=== PATIENT | female | born 1980 | race Caucasian/White ===

== ENCOUNTER → 2018-10-29 | Outpatient (CLI) | payer OTHER | END | disposition home or self-care (01) | LOC: MA 11:42 | PROC: BH02ZZZ Plain Radiography of Bilateral Breasts (ICD-10-PCS; principal; 2018-10-29) | DX: N63.21 Unspecified lump in the left breast, upper outer quadrant (principal); Z80.3 Family history of malignant neoplasm of breast | CPT/HCPCS: 77066 ==

== ENCOUNTER → 2018-12-12 | Outpatient (CLI) | payer OTHER | END | disposition home or self-care (01) | LOC: MA 11-27 09:30 → US 13:12 | PROC: BH41ZZZ Ultrasonography of Left Breast (ICD-10-PCS; principal; 2018-12-12) | DX: N63.21 Unspecified lump in the left breast, upper outer quadrant (principal) | CPT/HCPCS: 76641 ==

== ENCOUNTER → 2019-04-16 | Outpatient (CLI) | payer OTHER ==
[2019-04-18 05:08] LABS: RAPID PLASMA REAGIN Non Reactive (Non Reactive)
== END | disposition home or self-care (01) ==
LOC: LB 15:02
PROVIDERS: Specialist
DX: Z11.3 Encounter for screening for infections with a predominantly sexual mode of transmission (principal)
CPT/HCPCS: 87491; 87591

== ENCOUNTER → 2019-05-13 | Outpatient (CLI) | payer OTHER | END | disposition home or self-care (01) | LOC: LB 13:00 | DX: L70.0 Acne vulgaris (principal) ==

== ENCOUNTER 2019-05-17 21:08 | Emergency (ER) | payer OTHER ==
[~2019-05-17] VITALS: Ht 165.1 cm; Wt 75.7 kg
[2019-05-17 21:12] VITALS: Ht 165.1 cm; Wt 75.7 kg
[2019-05-17 22:23] VITALS: BP 112/74
== END 2019-05-17 22:23 | disposition home or self-care (01) ==
LOC: ED 21:08
DX: S61.451A Open bite of right hand, initial encounter (principal); W54.0XXA Bitten by dog, initial encounter; Y93.89 Activity, other specified; Y92.89 Other specified places as the place of occurrence of the external cause; Y99.8 Other external cause status
CPT/HCPCS: 90715

== ENCOUNTER → 2019-06-09 | Outpatient (CLI) | payer OTHER | END | disposition home or self-care (01) | LOC: LB 15:52 | DX: L70.0 Acne vulgaris (principal) ==

== ENCOUNTER 2019-08-03 14:14 | Emergency (ER) | payer OTHER ==
[~2019-08-03] VITALS: Ht 165.1 cm; Wt 75.7 kg
[2019-08-03 14:45] VITALS: Ht 165.1 cm; Wt 75.7 kg
[2019-08-03 15:17] VITALS: BP 109/69
== END 2019-08-03 15:17 | disposition home or self-care (01) ==
LOC: ED 14:14
DX: H10.89 Other conjunctivitis (principal)

== ENCOUNTER → 2019-12-18 | Outpatient (CLI) | payer OTHER | END | disposition home or self-care (01) | LOC: LB 10:44 | DX: R23.2 Flushing (principal) | CPT/HCPCS: 82670 ==